=== PATIENT | male | born 1960 | race Caucasian/White ===

== ENCOUNTER 2020-01-18 13:56 | Inpatient (IN) | payer OTHER ==
--- NOTE | 2020-01-18 14:10 | BHS.RME ---
Substance Use & Tx History - Substance Use History Alcohol Substance amount: 4 beers 32 oz Frequency of use: Daily Substance route: Oral Date of Last Use: 01/17/20 (started age 10) Heroin Substance amount: 1-2 bags Frequency of use: Daily Substance route: Inhalation (ex: sniffing or snorting) Date of Last Use: 01/17/20 (started age 55) Cocaine- Powder Substance amount: 1-2 grams Frequency of use: Daily Substance route: Inhalation (ex: sniffing or snorting) Date of Last Use: 01/17/20 (started age 27) Nicotine Substance amount: 1-2 ciggs Frequency of use: Daily Substance route: Smoking Date of Last Use: 01/18/20 (started age 30) Physical/Psych/Mental Status - Behavior General Behavior: Increased activity (restlessness, agitation) Eye Contact: Normal - Cooperativeness Cooperativeness: Cooperative - Thinking Thought Processes: Tight, Logical, Goal Directed - Physical Health Problems Is patient presently having any pain?: No Does patient presently have any injuries (include location): No Does patient currently have a fever: No Is patient : No CIWA Nausea/Vomitin Muscle Tremors: 3 Anxiety: 4-Mod. Anxious/Guarded Agitation: 4-Moderately Restless Paroxysmal Sweats: 3 Orientation: 1-Uncertain about Date Tacttile Disturbances: 0-None Auditory Disturbances: 0-None Visual Disturbances: 0-None Headache: 0-None Present CIWA-Ar Total Score: 17
[2020-01-18 17:18] VITALS: BMI 25.9
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
[2020-01-18] MEDS ORDERED: ACETAMINOPHEN 325 MG TABLET (FP) PO PRN ×2 (18:19)
[2020-01-18] MEDS ORDERED: chlordiazePOXIDE HCL 25 MG CAPSULE PO PRN (18:19)
[2020-01-18] MEDS ORDERED: MAG HYDROX/AL HYDROX/SIMETH 30 ML UNIT-DOSE CUP PO PRN (18:19)
[2020-01-18] MEDS ORDERED: METHOCARBAMOL 500 MG TABLET PO PRN (18:19)
[2020-01-18] MEDS ORDERED: NICOTINE POLACRILEX 2 MG GUM BUC PRN (18:19)
[2020-01-18] MEDS ORDERED: MAGNESIUM CITRATE 300 ML BOTTLE PO PRN (18:19)
[2020-01-18] MEDS ORDERED: BISMUTH SUBSALICYLATE 524 MG/30 ML UD PO PRN (18:19)
[2020-01-18] MEDS ORDERED: IBUPROFEN 400 MG TABLET (FP) PO PRN (18:19)
[2020-01-18] MEDS ORDERED: ONDANSETRON *ODT* 4 MG TABLET SL PRN (18:19)
[2020-01-18] MEDS: chlordiazePOXIDE HCL 25 MG CAPSULE PO SCH ×2 (20:55→23:03)
[2020-01-18] MEDS: NICOTINE 7 MG/24 HOURS TOPICAL PATCH TD SCH (20:56)
[2020-01-18] MEDS: THIAMINE HCL 100 MG TABLET (FP) PO SCH (23:03)
[2020-01-18] MEDS: MELATONIN 5 MG TABLETS PO SCH (23:04)
[2020-01-18] MEDS: hydrOXYzine PAMOATE 25 MG CAPSULE (FP) PO SCH (23:04)
[2020-01-19] MEDS: chlordiazePOXIDE HCL 25 MG CAPSULE PO SCH ×4 (06:48→22:15)
[2020-01-19] MEDS: hydrOXYzine PAMOATE 25 MG CAPSULE (FP) PO SCH ×5 (06:49→22:15)
--- NOTE | 2020-01-19 08:50 | PN ---
Teaching Attending Note Name of Resident: Mira Fu ATTENDING PHYSICIAN STATEMENT I saw and evaluated the patient. I reviewed the resident's note and discussed the case with the resident. I agree with the resident's findings and plan as documented. SUBJECTIVE: OBJECTIVE: ASSESSMENT AND PLAN: 1. Alcohol withdrawal Plan 1. Librium detox protocol
[2020-01-19] MEDS ORDERED: METHADONE HCL 10 MG TABLET PO SCH (09:45)
[2020-01-19] MEDS: PRENATAL VITAMINS W/ FOLIC ACID TABLET (FP) PO SCH (10:11)
[2020-01-19] MEDS: NICOTINE 7 MG/24 HOURS TOPICAL PATCH TD SCH (10:11)
[2020-01-19 10:28] LABS: HEMOGLOBIN 13.3 GM/dL (11.7-16.9); MCH 29.4 pg (25.7-33.7); MCHC 33.3 g/dl (32.0-35.9); MEAN CELL VOLUME 88.2 fl (80-96); MEAN PLT VOLUME 9.8 fl (7.5-11.1); PLATELET COUNT 209 K/MM3 (134-434); RBC 4.54 M/mm3 (4.00-5.60); RDW 13.3 % (11.9-15.9); WHITE BLOOD COUNT 7.4 K/mm3 (4.0-10.0)
[2020-01-19 10:39] LABS: ALBUMIN 3.4 g/dl (3.4-5.0); BILIRUBIN,TOTAL 0.8 mg/dL (0.2-1); BLOOD UREA NITROGEN 12.6 mg/dL (7-18); CALCIUM 8.8 mg/dL (8.5-10.1); CREATININE 1.1 mg/dL (0.55-1.3); POTASSIUM 4.6 mmol/L (3.5-5.1); TOT PROT 6.3 g/dl (6.4-8.2)
[2020-01-19] MEDS ORDERED: METHADONE HCL 10 MG TABLET ONE (10:47)
[2020-01-19] MEDS ORDERED: METHADONE HCL 5 MG TABLET ONE (10:48)
[2020-01-19] MEDS: METHADONE 20 MG, METHADONE 5 MG PO SCH (10:49)
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
--- NOTE | 2020-01-19 13:11 | PN ---
[facility] CIWA - CIWA Score Nausea/Vomitin-Mild Nausea/No Vomiting Muscle Tremors: 2 Anxiety: 2 Agitation: 2 Paroxysmal Sweats: 1-Minimal Palms Moist Orientation: 0-Oriented Tacttile Disturbances: 1-Very Mild Itch/Numbness Auditory Disturbances: 0-None Visual Disturbances: 0-None Headache: 2-Mild CIWA-Ar Total Score: 11 S Progress Note (SOAP) Subjective: alert,irritable,anxious,interrupted sleep,tremor,pain in the body and ba ck,nausea Objective: 01/19/20 16:00 Vital Signs Temperature 97.7 F 01/19/20 13:06 Pulse Rate 64 01/19/20 13:06 Respiratory Rate 18 01/19/20 13:06 Blood Pressure 107/58 L 01/19/20 13:06 O2 Sat by Pulse Oximetry (%) 96 01/19/20 13:06 01/19/20 16:01 Laboratory Last Values WBC 7.4 K/mm3 (4.0-10.0) 01/18/20 07:00 RBC 4.54 M/mm3 (4.00-5.60) 01/18/20 07:00 Hgb 13.3 GM/dL (11.7-16.9) 01/18/20 07:00 Hct 40.0 % (35.4-49) 01/18/20 07:00 MCV 88.2 fl (80-96) 01/18/20 07:00 MCH 29.4 pg (25.7-33.7) 01/18/20 07:00 MCHC 33.3 g/dl (32.0-35.9) 01/18/20 07:00 RDW 13.3 % (11.9-15.9) 01/18/20 07:00 Plt Count 209 K/MM3 (134-434) 01/18/20 07:00 MPV 9.8 fl (7.5-11.1) 01/18/20 07:00 Sodium 145 mmol/L (136-145) 01/18/20 07:00 Potassium 4.6 mmol/L (3.5-5.1) 01/18/20 07:00 Chloride 109 mmol/L (98-107) H 01/18/20 07:00 Carbon Dioxide 30 mmol/L (21-32) 01/18/20 07:00 Anion Gap 6 MMOL/L (8-16) L 01/18/20 07:00 BUN 12.6 mg/dL (7-18) 01/18/20 07:00 Creatinine 1.1 mg/dL (0.55-1.3) 01/18/20 07:00 Est GFR (CKD-EPI)AfAm 84.71 01/18/20 07:00 Est GFR (CKD-EPI)NonAf 73.09 01/18/20 07:00 Random Glucose 101 mg/dL (74-106) 01/18/20 07:00 Calcium 8.8 mg/dL (8.5-10.1) 01/18/20 07:00 Total Bilirubin 0.8 mg/dL (0.2-1) 01/18/20 07:00 AST 11 U/L (15-37) L 01/18/20 07:00 ALT 18 U/L (13-61) 01/18/20 07:00 Alkaline Phosphatase 82 U/L (45-117) 01/18/20 07:00 Total Protein 6.3 g/dl (6.4-8.2) L 01/18/20 07:00 Albumin 3.4 g/dl (3.4-5.0) 01/18/20 07:00 Assessment: 01/19/20 16:01 withdrawal symptom Plan: continue detox librium regimen,continue methadone maintenance 25 mgs po daily maintenance ,continue lisinopril 30 mgs po daily,bp monitoring
--- NOTE | 2020-01-19 13:27 | EKG ---
Test Reason : Blood Pressure : / mmHG Vent. Rate : 056 BPM Atrial Rate : 056 BPM P-R Int : 140 ms QRS Dur : 076 ms QT Int : 428 ms P-R-T Axes : 053 -01 013 degrees QTc Int : 413 ms SINUS BRADYCARDIA POSSIBLE LEFT ATRIAL ENLARGEMENT LEFT VENTRICULAR HYPERTROPHY ABNORMAL ECG NO PREVIOUS ECGS AVAILABLE Confirmed by GARETT MOORE MD ([id number]) on 01/19/2020 1:27:22 PM Referred By: Confirmed By:GARETT MOORE MD
[2020-01-19] MEDS: MAGNESIUM HYDROX 2400MG/30ML ORAL SUSPENSION 30 ML CUP PO PRN (15:07)
[2020-01-19] MEDS ORDERED: PATIENT'S OWN MEDICATION (NON-FORMULARY) (Lisinopril [Zestril] 30 MG) PO SCH (16:00)
[2020-01-19] MEDS: THIAMINE HCL 100 MG TABLET (FP) PO SCH (22:15)
[2020-01-19] MEDS: MELATONIN 5 MG TABLETS PO SCH (22:15)
[2020-01-20] MEDS ORDERED: METHADONE HCL 10 MG TABLET ONE (04:08)
[2020-01-20] MEDS ORDERED: METHADONE HCL 5 MG TABLET ONE (04:08)
[2020-01-20] MEDS: METHADONE 20 MG, METHADONE 5 MG PO SCH (06:33)
[2020-01-20] MEDS: chlordiazePOXIDE HCL 25 MG CAPSULE PO SCH ×4 (06:34→22:04)
[2020-01-20] MEDS: hydrOXYzine PAMOATE 25 MG CAPSULE (FP) PO SCH ×5 (06:34→22:04)
--- NOTE | 2020-01-20 08:55 | PN ---
S CIWA - CIWA Score Nausea/Vomitin-Mild Nausea/No Vomiting Muscle Tremors: 2 Anxiety: 2 Agitation: 2 Paroxysmal Sweats: No Perspiration Orientation: 0-Oriented Tacttile Disturbances: 0-None Auditory Disturbances: 0-None Visual Disturbances: 0-None Headache: 2-Mild CIWA-Ar Total Score: 9 BHS Progress Note (SOAP) Subjective: alert,irritable,anxious,interrupted sleep,aching pain Objective: 01/20/20 09:20 Vital Signs Temperature 97.1 F L 01/20/20 06:39 Pulse Rate 56 L 01/20/20 06:39 Respiratory Rate 18 01/20/20 06:39 Blood Pressure 114/61 01/20/20 06:39 O2 Sat by Pulse Oximetry (%) 100 01/20/20 06:39 Laboratory Last Values WBC 7.4 K/mm3 (4.0-10.0) 01/18/20 07:00 RBC 4.54 M/mm3 (4.00-5.60) 01/18/20 07:00 Hgb 13.3 GM/dL (11.7-16.9) 01/18/20 07:00 Hct 40.0 % (35.4-49) 01/18/20 07:00 MCV 88.2 fl (80-96) 01/18/20 07:00 MCH 29.4 pg (25.7-33.7) 01/18/20 07:00 MCHC 33.3 g/dl (32.0-35.9) 01/18/20 07:00 RDW 13.3 % (11.9-15.9) 01/18/20 07:00 Plt Count 209 K/MM3 (134-434) 01/18/20 07:00 MPV 9.8 fl (7.5-11.1) 01/18/20 07:00 Sodium 145 mmol/L (136-145) 01/18/20 07:00 Potassium 4.6 mmol/L (3.5-5.1) 01/18/20 07:00 Chloride 109 mmol/L (98-107) H 01/18/20 07:00 Carbon Dioxide 30 mmol/L (21-32) 01/18/20 07:00 Anion Gap 6 MMOL/L (8-16) L 01/18/20 07:00 BUN 12.6 mg/dL (7-18) 01/18/20 07:00 Creatinine 1.1 mg/dL (0.55-1.3) 01/18/20 07:00 Est GFR (CKD-EPI)AfAm 84.71 01/18/20 07:00 Est GFR (CKD-EPI)NonAf 73.09 01/18/20 07:00 Random Glucose 101 mg/dL (74-106) 01/18/20 07:00 Calcium 8.8 mg/dL (8.5-10.1) 01/18/20 07:00 Total Bilirubin 0.8 mg/dL (0.2-1) 01/18/20 07:00 AST 11 U/L (15-37) L 01/18/20 07:00 ALT 18 U/L (13-61) 01/18/20 07:00 Alkaline Phosphatase 82 U/L (45-117) 01/18/20 07:00 Total Protein 6.3 g/dl (6.4-8.2) L 01/18/20 07:00 Albumin 3.4 g/dl (3.4-5.0) 01/18/20 07:00 Syphilis Serology Non-reactive (NONREACTIVE) 01/18/20 07:00 Assessment: 01/20/20 09:21 withdrawal symptom Plan: continue detox librium regimen,continue methadone maintenance 25 mgs/day daily
[2020-01-20] MEDS: PRENATAL VITAMINS W/ FOLIC ACID TABLET (FP) PO SCH (10:10)
[2020-01-20] MEDS: NICOTINE 7 MG/24 HOURS TOPICAL PATCH TD SCH (10:11)
[2020-01-20] MEDS: LISINOPRIL 10 MG TABLET PO SCH (10:12)
[2020-01-20] MEDS ORDERED: PNEUMOC 13-VAL CONJ-DIP CRM/PF 0.5 ML DISP.SYRIN IM ONE (12:00)
[2020-01-20] MEDS: MAGNESIUM HYDROX 2400MG/30ML ORAL SUSPENSION 30 ML CUP PO PRN (17:56)
[2020-01-20] MEDS: THIAMINE HCL 100 MG TABLET (FP) PO SCH (22:04)
[2020-01-20] MEDS: MELATONIN 5 MG TABLETS PO SCH (22:04)
[2020-01-21] MEDS ORDERED: chlordiazePOXIDE HCL 10 MG CAPSULE PO PRN
[2020-01-21] MEDS ORDERED: METHADONE HCL 10 MG TABLET ONE (05:00)
[2020-01-21] MEDS ORDERED: METHADONE HCL 5 MG TABLET ONE (05:01)
[2020-01-21] MEDS: METHADONE 20 MG, METHADONE 5 MG PO SCH (06:39)
[2020-01-21] MEDS: chlordiazePOXIDE HCL 10 MG CAPSULE PO SCH ×4 (06:40→22:30)
[2020-01-21] MEDS: hydrOXYzine PAMOATE 25 MG CAPSULE (FP) PO SCH ×5 (06:40→22:31)
[2020-01-21] MEDS: LISINOPRIL 10 MG TABLET PO SCH (10:05)
[2020-01-21] MEDS: NICOTINE 7 MG/24 HOURS TOPICAL PATCH TD SCH (10:05)
[2020-01-21] MEDS: PRENATAL VITAMINS W/ FOLIC ACID TABLET (FP) PO SCH (10:05)
--- NOTE | 2020-01-21 10:29 | PN ---
S CIWA - CIWA Score Nausea/Vomitin-No Nausea/No Vomiting Muscle Tremors: None Anxiety: 2 Agitation: 0-Normal Activity Paroxysmal Sweats: 2 Orientation: 0-Oriented Tacttile Disturbances: 0-None Auditory Disturbances: 0-None Visual Disturbances: 0-None Headache: 2-Mild CIWA-Ar Total Score: 6 BHS Progress Note (SOAP) Subjective: c/o anxiety, sweats, and headache. Objective: 01/21/20 10:27 Vital Signs 01/21/20 01/21/20 05:08 08:49 Temperature 97.9 F 97.7 F Pulse Rate 58 L 75 Respiratory 18 18 Rate Blood Pressure 114/75 131/77 O2 Sat by Pulse 96 Oximetry (%) Laboratory Last Values WBC 7.4 K/mm3 (4.0-10.0) 01/18/20 07:00 RBC 4.54 M/mm3 (4.00-5.60) 01/18/20 07:00 Hgb 13.3 GM/dL (11.7-16.9) 01/18/20 07:00 Hct 40.0 % (35.4-49) 01/18/20 07:00 MCV 88.2 fl (80-96) 01/18/20 07:00 MCH 29.4 pg (25.7-33.7) 01/18/20 07:00 MCHC 33.3 g/dl (32.0-35.9) 01/18/20 07:00 RDW 13.3 % (11.9-15.9) 01/18/20 07:00 Plt Count 209 K/MM3 (134-434) 01/18/20 07:00 MPV 9.8 fl (7.5-11.1) 01/18/20 07:00 Sodium 145 mmol/L (136-145) 01/18/20 07:00 Potassium 4.6 mmol/L (3.5-5.1) 01/18/20 07:00 Chloride 109 mmol/L (98-107) H 01/18/20 07:00 Carbon Dioxide 30 mmol/L (21-32) 01/18/20 07:00 Anion Gap 6 MMOL/L (8-16) L 01/18/20 07:00 BUN 12.6 mg/dL (7-18) 01/18/20 07:00 Creatinine 1.1 mg/dL (0.55-1.3) 01/18/20 07:00 Est GFR (CKD-EPI)AfAm 84.71 01/18/20 07:00 Est GFR (CKD-EPI)NonAf 73.09 01/18/20 07:00 Random Glucose 101 mg/dL (74-106) 01/18/20 07:00 Calcium 8.8 mg/dL (8.5-10.1) 01/18/20 07:00 Total Bilirubin 0.8 mg/dL (0.2-1) 01/18/20 07:00 AST 11 U/L (15-37) L 01/18/20 07:00 ALT 18 U/L (13-61) 01/18/20 07:00 Alkaline Phosphatase 82 U/L (45-117) 01/18/20 07:00 Total Protein 6.3 g/dl (6.4-8.2) L 01/18/20 07:00 Albumin 3.4 g/dl (3.4-5.0) 01/18/20 07:00 Syphilis Serology Non-reactive (NONREACTIVE) 01/18/20 07:00 COVID-19 (ANAYELI) Not detected (Not Detected) 01/18/20 19:35 Labs noted. Assessment: 01/21/20 10:28 AOX3, in no acute respiratory distress. Full ROM, ambulating in the unit. Withdrawal symptoms. Plan: continue detox.
[2020-01-21] MEDS: MELATONIN 5 MG TABLETS PO SCH (22:30)
[2020-01-21] MEDS: THIAMINE HCL 100 MG TABLET (FP) PO SCH (22:31)
[2020-01-22] MEDS ORDERED: METHADONE HCL 5 MG TABLET ONE (04:27)
[2020-01-22] MEDS ORDERED: METHADONE HCL 10 MG TABLET ONE (04:27)
[2020-01-22] MEDS: chlordiazePOXIDE HCL 10 MG CAPSULE PO SCH ×2 (05:30→17:41)
[2020-01-22] MEDS: hydrOXYzine PAMOATE 25 MG CAPSULE (FP) PO SCH ×5 (05:30→22:05)
[2020-01-22] MEDS: METHADONE 20 MG, METHADONE 5 MG PO SCH (05:31)
[2020-01-22] MEDS: LISINOPRIL 10 MG TABLET PO SCH (09:42)
[2020-01-22] MEDS: NICOTINE 7 MG/24 HOURS TOPICAL PATCH TD SCH (09:42)
[2020-01-22] MEDS: PRENATAL VITAMINS W/ FOLIC ACID TABLET (FP) PO SCH (09:42)
--- NOTE | 2020-01-22 11:05 | PN ---
S CIWA - CIWA Score Nausea/Vomitin-No Nausea/No Vomiting Muscle Tremors: 1-None Visible, but [place] Anxiety: 0-No Anxiety, at Ease Agitation: 0-Normal Activity Paroxysmal Sweats: No Perspiration Orientation: 0-Oriented Tacttile Disturbances: 0-None Auditory Disturbances: 0-None Visual Disturbances: 1-Very Mild Sensitivity Headache: 1-Very Mild CIWA-Ar Total Score: 3 BHS Progress Note (SOAP) Subjective: 59 years old male was admitted on 01/18/20 for alcohol withdrawal sx management treating [facility] detox regiment feels better today discuss aftercare with staff mr sweet prefers to go to [facility] for alcohol abuse treatment Objective: 01/22/20 11:04 Vital Signs - 24 hr 01/21/20 01/21/20 01/21/20 12:44 16:41 20:59 Temperature 97.8 F 97.9 F 97.5 F L Pulse Rate 84 67 68 Respiratory 18 18 18 Rate Blood Pressure 138/77 137/86 144/89 O2 Sat by Pulse 98 95 Oximetry (%) 01/22/20 01/22/20 07:01 08:36 Temperature 97.9 F 97.7 F Pulse Rate 63 92 H Respiratory 18 18 Rate Blood Pressure 106/66 144/87 O2 Sat by Pulse 97 Oximetry (%) Laboratory Tests 01/18/20 01/18/20 01/18/20 07:00 07:00 07:00 WBC 7.4 RBC 4.54 Hgb 13.3 Hct 40.0 MCV 88.2 MCH 29.4 MCHC 33.3 RDW 13.3 Plt Count 209 MPV 9.8 Sodium 145 Potassium 4.6 Chloride 109 H Carbon Dioxide 30 Anion Gap 6 L BUN 12.6 Creatinine 1.1 Est GFR (CKD-EPI)AfAm 84.71 Est GFR (CKD-EPI)NonAf 73.09 Random Glucose 101 Calcium 8.8 Total Bilirubin 0.8 AST 11 L ALT 18 Alkaline Phosphatase 82 Total Protein 6.3 L Albumin 3.4 Syphilis Serology Non-reactive COVID-19 (ANAYELI) 01/18/20 19:35 WBC RBC Hgb Hct MCV MCH MCHC RDW Plt Count MPV Sodium Potassium Chloride Carbon Dioxide Anion Gap BUN Creatinine Est GFR (CKD-EPI)AfAm Est GFR (CKD-EPI)NonAf Random Glucose Calcium Total Bilirubin AST ALT Alkaline Phosphatase Total Protein Albumin Syphilis Serology COVID-19 (ANAYELI) Not detected lab noted Assessment: 01/22/20 11:04 alcohol withdrawal Plan: librium regiment received methadone 25 mg today
[2020-01-22] MEDS ORDERED: PNEUMOCOCCAL 23 VACCINE 0.5 ML VIAL IM ONE (12:00)
[2020-01-22] MEDS: MAGNESIUM HYDROX 2400MG/30ML ORAL SUSPENSION 30 ML CUP PO PRN ×2 (14:46→17:43)
[2020-01-22] MEDS: THIAMINE HCL 100 MG TABLET (FP) PO SCH (22:05)
[2020-01-22] MEDS: MELATONIN 5 MG TABLETS PO SCH (22:06)
[2020-01-23] MEDS ORDERED: METHADONE HCL 10 MG TABLET ONE ×2 (04:32→08:32)
[2020-01-23] MEDS ORDERED: METHADONE HCL 5 MG TABLET ONE ×2 (04:32→08:33)
[2020-01-23] MEDS ORDERED: chlordiazePOXIDE HCL 10 MG CAPSULE PO ONE (05:00)
[2020-01-23] MEDS: MENTHOL/PHENOL 1 EACH UD MM PRN ×2 (05:09→09:59)
[2020-01-23] MEDS: METHADONE 20 MG, METHADONE 5 MG PO SCH (05:09)
[2020-01-23] MEDS: hydrOXYzine PAMOATE 25 MG CAPSULE (FP) PO SCH ×2 (05:57→10:09)
[2020-01-23 06:49] VITALS: BP 140/82; PULSE 65; TEMP 98.4
--- NOTE | 2020-01-23 09:10 | DS ---
[facility] Detox Discharge Summary Admission Date: 01/18/20 Discharge Date: 01/23/20 - History Present History: Alcohol Dependence, Cocaine Dependence, MMTP Additional Comments: alert,oriented x 3 ambulation on the unit lung clear on auscultation bilaterally abdomen soft,no pain,no tenderness no edema of legs detox completed,no withdrawal symptom stable for discharge total time spending on discharge 35 minutes follow up in rehab as arrangement Pertinent Past History: hypertension - Physical Exam Results Vital Signs: Vital Signs Temperature 98.4 F 01/23/20 06:48 Pulse Rate 65 01/23/20 06:48 Respiratory Rate 18 01/23/20 06:48 Blood Pressure 140/82 01/23/20 06:48 O2 Sat by Pulse Oximetry (%) 97 01/23/20 06:48 Pertinent Admission Physical Exam Findings: withdrawal signs and symptom Laboratory Last Values WBC 7.4 K/mm3 (4.0-10.0) 01/18/20 07:00 RBC 4.54 M/mm3 (4.00-5.60) 01/18/20 07:00 Hgb 13.3 GM/dL (11.7-16.9) 01/18/20 07:00 Hct 40.0 % (35.4-49) 01/18/20 07:00 MCV 88.2 fl (80-96) 01/18/20 07:00 MCH 29.4 pg (25.7-33.7) 01/18/20 07:00 MCHC 33.3 g/dl (32.0-35.9) 01/18/20 07:00 RDW 13.3 % (11.9-15.9) 01/18/20 07:00 Plt Count 209 K/MM3 (134-434) 01/18/20 07:00 MPV 9.8 fl (7.5-11.1) 01/18/20 07:00 Sodium 145 mmol/L (136-145) 01/18/20 07:00 Potassium 4.6 mmol/L (3.5-5.1) 01/18/20 07:00 Chloride 109 mmol/L (98-107) H 01/18/20 07:00 Carbon Dioxide 30 mmol/L (21-32) 01/18/20 07:00 Anion Gap 6 MMOL/L (8-16) L 01/18/20 07:00 BUN 12.6 mg/dL (7-18) 01/18/20 07:00 Creatinine 1.1 mg/dL (0.55-1.3) 01/18/20 07:00 Est GFR (CKD-EPI)AfAm 84.71 01/18/20 07:00 Est GFR (CKD-EPI)NonAf 73.09 01/18/20 07:00 Random Glucose 101 mg/dL (74-106) 01/18/20 07:00 Calcium 8.8 mg/dL (8.5-10.1) 01/18/20 07:00 Total Bilirubin 0.8 mg/dL (0.2-1) 01/18/20 07:00 AST 11 U/L (15-37) L 01/18/20 07:00 ALT 18 U/L (13-61) 01/18/20 07:00 Alkaline Phosphatase 82 U/L (45-117) 01/18/20 07:00 Total Protein 6.3 g/dl (6.4-8.2) L 01/18/20 07:00 Albumin 3.4 g/dl (3.4-5.0) 01/18/20 07:00 Syphilis Serology Non-reactive (NONREACTIVE) 01/18/20 07:00 COVID-19 (ANAYELI) Not detected (Not Detected) 01/18/20 19:35 Vital Signs Temperature 98.4 F 01/23/20 06:48 Pulse Rate 65 01/23/20 06:48 Respiratory Rate 18 01/23/20 06:48 Blood Pressure 140/82 01/23/20 06:48 O2 Sat by Pulse Oximetry (%) 97 01/23/20 06:48 - Treatment Hospital Course: Detox Protocol Followed, Detoxed Safely, Responded well, Discharged Condition Good, Rehab Referral Accepted Patient [facility] Accept[facility] - Medication Discharge Medications: Ambulatory Orders Lisinopril [Zestril] 30 mg PO DAILY 01/18/20 - Diagnosis (1) Alcohol dependence Current Visit: Yes Status: Acute Qualifiers: Substance use status: in withdrawal Complication of substance-induced condition: uncomplicated Qualified Code(s): F10.230 - Alcohol dependence with withdrawal, uncomplicated (2) Cocaine dependence Current Visit: Yes Status: Acute Qualifiers: Substance use status: uncomplicated Qualified Code(s): F14.20 - Cocaine de pendence, uncomplicated (3) Methadone maintenance therapy patient Current Visit: Yes Status: Acute (4) Hypertension Current Visit: Yes Status: Chronic Qualifiers: Hypertension type: unspecified Qualified Code(s): I10 - Essential (primary) hypertension - AMA Did Patient Leave Against Medical Advice: No
--- NOTE | 2020-01-23 09:10 | PN ---
[facility] CIWA - CIWA Score Nausea/Vomitin-No Nausea/No Vomiting Muscle Tremors: None Anxiety: 1-Mildly Anxious Agitation: 0-Normal Activity Paroxysmal Sweats: No Perspiration Orientation: 0-Oriented Tacttile Disturbances: 0-None Auditory Disturbances: 0-None Visual Disturbances: 0-None Headache: 0-None Present CIWA-Ar Total Score: 1 S Progress Note (SOAP) Subjective: alert,no complaint Objective: 01/23/20 10:12 Vital Signs Temperature 98.4 F 01/23/20 06:48 Pulse Rate 65 01/23/20 06:48 Respiratory Rate 18 01/23/20 06:48 Blood Pressure 140/82 01/23/20 06:48 O2 Sat by Pulse Oximetry (%) 97 01/23/20 06:48 Assessment: 01/23/20 10:12 detox completed,no withdrawal symptom Plan: stable for discharge today,follow up with after care program rehab as arrangement
[2020-01-23] MEDS: LISINOPRIL 10 MG TABLET PO SCH (09:57)
[2020-01-23] MEDS: PRENATAL VITAMINS W/ FOLIC ACID TABLET (FP) PO SCH (09:57)
[2020-01-23] MEDS: NICOTINE 7 MG/24 HOURS TOPICAL PATCH TD SCH (09:58)
== END 2020-01-23 11:21 | disposition other institution (70) | DRG 773 ==
LOC: YASAS 13:56 → Y3N 19:32
PROVIDERS: ADMIT Allergy & Immunology; ATTEND Allergy & Immunology
PROC: HZ2ZZZZ Detoxification Services for Substance Abuse Treatment (ICD-10-PCS; principal; 2020-01-18)
DX: F10.230 Alcohol dependence with withdrawal, uncomplicated (principal); F11.20 Opioid dependence, uncomplicated; F14.20 Cocaine dependence, uncomplicated; F17.210 Nicotine dependence, cigarettes, uncomplicated; F19.24 Other psychoactive substance dependence with psychoactive substance-induced mood disorder; F41.9 Anxiety disorder, unspecified; F32.9 Major depressive disorder, single episode, unspecified; I10 Essential (primary) hypertension; Z88.0 Allergy status to penicillin
CPT/HCPCS: 36415; 80053; 85027; 86780; 90732; 93005; 93010; C9803; G0009; U0003